=== PATIENT | male | born 1995 | race Hispanic/Latino ===

== ENCOUNTER 2024-11-07 23:39 | Emergency (ER) | payer SELFPAY | END 2024-11-08 01:09 | disposition home or self-care (01) | LOC: CSHERS 23:39 | DX: S00.03XA Contusion of scalp, initial encounter (principal); V47.0XXA Car driver injured in collision with fixed or stationary object in nontraffic accident, initial encounter; Y93.89 Activity, other specified | CPT/HCPCS: 70450; 72125 ==